=== PATIENT | male | born 1975 | race Caucasian/White ===

== ENCOUNTER 2023-07-09 07:48 | Outpatient (NON) | payer OTHER, SELFPAY | END 2023-07-09 07:49 | disposition home or self-care (01) | PROVIDERS: PCP Family Medicine; Visit Provider Internal Medicine Gastroenterology | DX: Z12.11 Encounter for screening for malignant neoplasm of colon (principal) | CPT/HCPCS: 88305 ==

== ENCOUNTER 2023-07-09 10:31 | Day surgery (SDC) | payer OTHER, SELFPAY ==
[2023-06-05 10:27] VITALS: BMI 23.0
[2023-06-10 11:50] VITALS: BMI 23.1
--- NOTE | 2023-07-09 07:50 | P.PNAN_ITS ---
Anes - Initial Pre Proc Eval Procedure: Operation Date: 07/09/23 13:00 Proposed Procedures p Screening Colonoscopy - Jose Miranda MD Date/Time: 07/09/23 07:50 Surgeon: Jose Miranda MD Pre Op Diagnosis: Screening Neoplasm of Colon Patient Data Age: 47 Gender: M Height: 1.8 m Weight: 75 kg Allergies Allergy/AdvReac Type Severity Reaction Status Date / Time No Known Allergies Allergy Unknown Verified 07/09/23 11:53 Home Medications Medication Instructions Recorded Confirmed Type No Home Medications 07/09/23 07/09/23 History Patient hx anesthesia problems: none Family hx anesthesia problems: none Results Review: All pre-operative results and documents have been reviewed as part of the pre- operative evaluation. [facility] Social History Social History (System 03/09/20 @ 10:45 by Jone Knott) Smoking status: Former smoker Alcohol intake: current Drinks per week: 6 Living arrangements: with family Spiritual care concerns: No Anes - Eval Final PreProcedure Day of Procedure 07/09/23 07:50 Patient weight: normal Heart: regular rate and rhythm Lungs: clear to auscultation and normal air movement Airway: Mallampati scale class II Neurological: alert and oriented Last oral intake: >/= 8 hours ASA classification: II Emergent: no Anesthetic plan: proceed Anesthesia type and monitoring: general GIVS and standard monitoring Results Review: All pre-operative results and documents have been reviewed as part of the pre- operative evaluation. Informed Consent: The patient's anesthetic plan and its attendant risks and benefits were discussed with the patient/family/POA. Questions were solicited and answers provided to the satisfaction of the patient/family/POA.
[2023-07-09 11:54] VITALS: BP 115/90; PULSE 103; RESP 18; TEMP 36.9; O2SAT 100
--- NOTE | 2023-07-09 12:02 | PM.HPGS ---
History of Present Illness History of Present Illness Consent: Risks, benefits, and alternatives have been discussed and questions answered. Patient agrees to proceed with procedure. Chief complaint: Screening Neoplasm of Colon Narrative: Sanjiv Cuba is a 47 year old male presents for screening colonoscopy. Patient's current weight is are normal. Patient had no bleeding. Family history is noncontributory. Review of Systems Review of Systems: All systems reviewed & are unremarkable except as noted in HPI and below PMFSH Social History Social History (System 03/09/20 @ 10:45 by Jone Knott) Smoking status: Former smoker Alcohol intake: current Drinks per week: 6 Living arrangements: with family Spiritual care concerns: No Meds Home Medications and Allergies Home Medications Medication Instructions Recorded Confirmed Type No Home Medications 07/09/23 07/09/23 History Allergies Allergy/AdvReac Type Severity Reaction Status Date / Time No Known Allergies Allergy Unknown Verified 07/09/23 11:53 Vital Signs Vital Signs - 24 hr 07/09/23 11:54 Temperature 98.4 F Pulse Rate 103 H Respiratory Rate 18 Blood Pressure 115/90 Pulse Oximetry 100 Oxygen Delivery Room Air Exam Narrative: Physical exam reveals patient to be alert. Signs stable. HEENT exam is unremarkable. Patient is anicteric. Lungs are clear to auscultation and to percussion is without murmur or extra sounds. Abdomen bowel sounds are present soft nontender with no organomegaly. Digital external rectal exam normal. Assessment and Plan Assessment and plan (1) Encounter for screening colonoscopy: Code(s): Z12.11 - Encounter for screening for malignant neoplasm of colon Status: Acute Assessment and Plan: Presents for screening colonoscopy. He appears to be at average risk for colon polyps.
[2023-07-09] MEDS: LACTATED RINGERS 1,000 ML 150 ML IV CONT (12:12)
[2023-07-09 14:14] VITALS: BP 133/103; PULSE 88; RESP 14; O2SAT 99
--- NOTE | 2023-07-09 14:19 | WPDANESPN ---
Anes - Prog Note Post-Op Date/Time: 07/09/23 14:19 Cardiovascular status: normal Respiratory status: normal Airway patency: baseline Mental status: baseline Post-Op hydration status: normal Vital Signs: Last Vital Signs Temp 36.9 C 07/09/23 11:54 Pulse 103 H 07/09/23 11:54 Resp 18 07/09/23 11:54 BP 115/90 07/09/23 11:54 Pulse Ox 100 07/09/23 11:54 O2 Del Method Room Air 07/09/23 11:54 Pain Score (VAS): 0 I/O: Intake & Output 07/08/23 07/09/23 07/09/23 23:59 07:59 15:59 Intake Total 400 Balance 400 Post-procedural complaints: none Patient Feedback: Patient satisfied with anesthetic care. Other Findings: Patient vital signs back to baseline. Patient denies nausea and vomiting. Patient's pain under control. Patient OK for discharge.
[2023-07-09 14:24] VITALS: BP 132/96; PULSE 75; RESP 14; O2SAT 100
[2023-07-09 14:34] VITALS: BP 123/99; PULSE 72; RESP 14; O2SAT 100
== END 2023-07-09 14:43 | disposition home or self-care (01) ==
PROVIDERS: PCP Family Medicine; Visit Provider Internal Medicine Gastroenterology
PROC: 0DJD8ZZ Inspection of Lower Intestinal Tract, Via Natural or Artificial Opening Endoscopic (ICD-10-PCS; CPT 45378; principal; 2023-07-09 13:00)
DX: Z12.11 Encounter for screening for malignant neoplasm of colon (principal); D12.5 Benign neoplasm of sigmoid colon; K64.8 Other hemorrhoids
CPT/HCPCS: 45385

== ENCOUNTER 2024-01-21 18:53 | Emergency (ER) | payer OTHER, SELFPAY ==
--- NOTE | ~2024-01-21 | US_ITS ---
EXAM: ABDOMEN ULTRASOUND HISTORY: pain, N/V; Guzman positive COMPARISON: None FINDINGS: LIVER: The liver is unremarkable in echogenicity and size measuring 16 cm in longitudinal dimension. The main portal vein is patent demonstrating hepatopedal flow GALLBLADDER: No stones are identified within the gallbladder, which is hydropic measuring 9.5 cm in l ength. A single subcentimeter avascular polyp is identified along the caudal-most margin of the gallbladder No gallbladder wall thickening or pericholecystic fluid. BILE DUCTS: Common bile duct measures 3mm. PANCREAS: Limited evaluation of the pancreas secondary to overlying bowel gas IMPRESSION: Hydropic gallbladder with a subcentimeter avascular polyp Reviewed, dictated and finalized at location A. ET MEASURER
--- NOTE | ~2024-01-21 | CT_ITS ---
CLINICAL INDICATION: Right flank pain COMPARISON: 07/08/2015. TECHNIQUE: Multiple contiguous axial images of the abdomen and pelvis were performed following the ad ministration of with 100 mL Omnipaque-350 intravenous contrast The dose-length product (DLP) was 278.44 mGy-cm. Automated exposure control and iterative reconstruction technique were employed. FINDINGS/OBSERVATIONS: Visualized lower thorax: The bilateral lung bases are clear. The heart is of normal size, without pericardial effusion. Small hiatal hernia is present. Liver: Liver enhances homogeneously, and is not enlarged measuring 16 cm in longitudinal dimension Gallbladder and biliary system: The gallbladder is distended, and otherwise unremarkable. Measurement on ultrasound is more accurate than multi slice CT. Pancreas: The pancreas enhances homogeneously without ductal dilatation. Spleen: The spleen enhances homogeneously and is not enlarged measuring 10 cm in longitudinal dimension. Kidneys: Right sided hydroureteronephrosis extending to the proximal right ureter where a 4 mm stone is identi fied. This likely is the source of patient's right-sided flank pain Adrenal glands: Unremarkable. Gastrointestinal tract: Colonic diverticulosis without surrounding inflammatory change. Fecal stasis within the rectum. Appendix: The appendix is of normal caliber (axial series, images 130-137) Vasculature: Unremarkable. No aneurysmal dilatation or significant stenosis. Lymph nodes: No pathologically enlarged or morphologically suspicious lymph nodes within the retroperitoneum or at the root of the mesentery. Pelvic structures: The bladder is distended, and otherwise unremarkable. The prostate gland is not enlarged. Body wall and musculoskeletal: No significant degenerative disease within the lower thoracic or lumbosacral spine. IMPRESSION: Right-sided hydroureteronephrosis secondary to a 4 mm stone in the proximal third of the right ureter . Reviewed, dictated and finalized at location A. CHIEF MARKETING OFFICER IMPRESSION: Right-sided hydroureteronephrosis secondary to a 4 mm stone in the proximal thi rd of the right ureter.
--- NOTE | 2024-01-21 19:11 | ED.ABDPAIN ---
HPI - Abdominal Pain General Chief Complaint: Abdominal Pain Stated Complaint: RIGHT FLANK PAIN Time Seen by Provider: 01/21/24 18:59 Source: patient and family Mode of arrival: ambulatory Limitations: no limitations History of Present Illness HPI narrative: Patient presents with right upper quadrant/right lateral abdominal/flank pain. No palliating or provoking factors. He describes it as sharp and stabbing, 9/10 in severity and that it comes in waves intermittently but frequently. He denies any fevers or chills. He denies any hematuria, urgency, frequency or dysuria. No penile discharge. He states this has never happened before. No prior abdominal surgeries or GI issues. Does not regularly follow with a mechanical integrity engineer although had a screening colonoscopy in the past year. No history of urinary tract infection or stone. His last bowel movement was this morning he denies any diarrhea, constipation, bloody stool. He has been nauseated and vomiting Friday and , approximately 5 or 6 episodes of nonbloody emesis this evening. His last oral intake was lunch he denies having an appetite. 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 HEAD: Normocephalic, atraumatic. EYES: Non injected, non icteric ENT: Nares clear, no rhinorrhea or epistaxis. NECK: Supple. CHEST: Speaking in full sentences. No respiratory distress. HEART: Regular rate and rhythm. ABDOMEN: Soft, nondistended. Mild tenderness to palpation in the right upper quadrant. Guzman sign positive. /BACK: No CVA tenderness bilaterally. EXTREMITIES: Normal range of motion. No lower extremity edema. SKIN: Warm, dry, no rash. NEURO: No focal deficits. Alert and oriented x3. PSYCH: Normal mood and affect. Course Vital Signs Vital signs: Vital Signs Pulse Rate 70 01/21/24 19:15 Respiratory Rate 11 L 01/21/24 19:15 Blood Pressure 134/91 H 01/21/24 19:15 Pulse Oximetry 99 01/21/24 19:15 Oxygen Delivery Room Air 01/21/24 19:15 Temperature 98.0 F 01/21/24 20:58 Pulse Rate 63 01/21/24 20:58 Respiratory Rate 15 01/21/24 20:58 Blood Pressure 137/88 01/21/24 20:58 Pulse Oximetry 97 01/21/24 20:58 Oxygen Delivery Room Air 01/21/24 19:15 MDM - Abdominal Pain MDM Narrative Medical decision making narrative: Patient presents with right upper quadrant/flank/right lateral abdominal pain associated with nausea and vomiting. In the emergency department he is afebrile with vital signs notable for very mild bradypnea as well as a slightly elevated diastolic blood pressure, both normalized upon repeat assessment. Patient does have evidence of gallbladder hydrops on right upper quadrant ultrasound. However, he also has findings of a ureteral stone in the proximal 3rd on the right. He is reassessed at approximately 9:10pm and states his pain is still present although greatly improved. His nausea has completely resolved. We discussed that although it is initially difficult to tell which process is the cause, in the absence of a leukocytosis or liver function test abnormalities and being non-toxic appearing and feeling better after 1 dose of analgesic and antiemetic; in addition to his description of pain coming in waves, is reasonable to treat for a kidney stone and have him follow-up in the outpatient setting for general surgery consultation for the other rather than presuming the gallbladder hydrops is the cause and the kidney stone is the incidental findings. Patient and his verifies understanding and are in agreement. He is obviously given very strict emergency department return precautions. He is reassessed after receiving Toradol and tamsulosin he states his pain is gone. Stable for discharge. Differential Diagnosis Differential diagnosis: Likely abdominal pain, calculus of kidney, constipation, pancreatitis and other (biliary etiology) Lab Data Attestation: I reviewed the patient's lab results. Lab results narrative: Hematuria 01/21/24 19:50 01/21/24 19:50 Labs: Lab Results 01/21/24 01/21/24 Range/Units 19:50 20:35 WBC 8.8 (4.5-10.0) K/mm3 RBC 4.77 (4.6-6.20) M/mm3 Hgb 14.1 (14.0-18.0) g/dL Hct 41.4 L (42.0-52.0) % MCV 86.8 (80-100) fl MCH 29.6 (26-34) pg MCHC 34.1 (32-36) g/dl RDW 12.0 (11.5-14.5) % Plt Count 240 (150-375) k/mm3 MPV 10.4 (7.4-10.4) fl Immature Gran % (Auto) 0.3 (0-0.5) % Neut % (Auto) 78.0 H (45.5-73.1) % Lymph % (Auto) 12.8 L (18.3-44.2) % [place] % (Auto) 7.3 (2.6-8.5) % Eos % (Auto) 1.1 (0-4.4) % Baso % (Auto) 0.5 (0.2-1.2) % Lymph # (Auto) 1.12 (0.9-3.2) K/mm3 [place] # (Auto) 0.6 (0.1-0.6) K/mm3 Eos # (Auto) 0.1 (0-0.3) K/mm3 Baso # (Auto) 0.0 (0.0-0.1) K/mm3 Abs Immat Gran (auto) 0.03 (0.00-0.031) K/mm3 Absolute Neuts (auto) 6.8 H (1.3-6.7) K/mm3 Absolute Nucleated RBC 0.000 (0.0-0.012) K/mm3 Nucleated RBC % 0.0 (0.0-0.2) % Sodium 138 (137-145) mmol/L Potassium 3.6 (3.4-5.0) mmol/L Chloride 102 (98-107) mmol/L Carbon Dioxide 26 (22-30) mmol/L Anion Gap 10 (4-12) mmol/L BUN 16 (9-20) mg/dL Creatinine 1.10 (0.7-1.3) mg/dL Estim Creat Clear Calc 75 ml/min Estimated GFR > 60 (59 - ) Glucose 99 (65-110) mg/dL Calcium 9.7 (8.4-10.2) mg/dL Total Bilirubin 0.5 (0.2-1.3) mg/dL AST 46 (17-59) U/L ALT 32 (6-50) U/L Alkaline Phosphatase 59 (38-126) U/L Total Protein 7.0 (6.3-8.2) g/dL Albumin 4.6 (3.5-5.1) g/dL Lipase 109 (23-300) U/L Urine Color Yellow (Yellow) Urine Appearance Clear (Clear) Urine pH 5.5 (5.0-9.0) Ur Specific [place] 1.027 (1.001-1.035) Urine Protein Trace (Negative) mg/dL Urine Glucose (UA) Negative (Negative) mg/dL Urine Ketones Trace H (Negative) mg/dL Ur Blood (Man) 3+ H (Negative) Urine Nitrate Negative (Negative) Urine Bilirubin Negative (Negative) Urine Urobilinogen 0.2 (<2.0) mg/dL Leukocyte Esterase Rfl Negative (Negative) NANCY/UL Urine RBC 21-50 H (0-2) /hpf Urine WBC 0-5 (0-3) /hpf Ur Squamous Epith Cells None seen (Few) /hpf Urine Bacteria None seen /hpf Urine Casts 0-2 Influenza A (RT-PCR) Negative (Negative) Influenza B (RT-PCR) Negative (Negative) SARS-CoV-2 RNA (RT-PCR) Negative (Negative) Imaging Data Radiologist's impression: ITS Impressions Abdomen Ultrasound 01/21/24 20:34 IMPRESSION: Hydropic gallbladder with a subcentimeter avascular polyp Abdomen/Pelvis CT 01/21/24 20:52 IMPRESSION: Right-sided hydroureteronephrosis secondary to a 4 mm stone in the proximal third of the right ureter. Impressions Abdomen Ultrasound 01/21/24 20:34 IMPRESSION: Hydropic gallbladder with a subcentimeter avascular polyp Abdomen/Pelvis CT 01/21/24 20:52 IMPRESSION: Right-sided hydroureteronephrosis secondary to a 4 mm stone in the proximal third of the right ureter. Discharge Plan Discharge Clinical Impression: Right ureteral stone, Gallbladder hydrops, Hydroureteronephrosis, Hematuria, microscopic Patient Disposition: Home, Self-Care Condition: Stable Instructions: Antibiotic Form, Hematuria (ED), How to Strain Your Urine (ED), Hydronephrosis (ED), Ureteral Stones (ED) Additional Instructions: As we discussed, you have evidence of a kidney stone in your ureter which is likely the culprit of your acute pain. Treat with the combination of medications prescribed for the reasons we discussed (pain control, nausea/vomiting, and expulsion therapy). Strain your urine and if you collect a stone, you can take it and follow up with urology if you would like (referral contact information listed below). Can not exclude that the finding of gallbladder hydrops is contributing/exacerbating/the cause of your pain, though for now will presume the kidney stone is the primary issue. You can follow up in the outpatient setting with general surgery (listed below) if you would like to follow up on this or if you have issues in the future. Do not hesitate to return to the ED immediately if you have pain not responding to the pain medication (use ibuprofen/NSAIDs first line but can supplement with acetaminophen/Tylenol maximum 4000mg/day), intractable nausea or vomiting, fever greater than 100.4? F, or new or worsening symptoms. Prescriptions: New ibuprofen 600 mg tablet 600 mg PO TID PRN (Reason: pain) Qty: 30 0RF ondansetron 4 mg tablet,disintegrating 4 mg PO Q8H PRN (Reason: nausea and vomiting) Qty: 10 0RF tamsulosin 0.4 mg capsule 0.4 mg PO DAILY Qty: 12 0RF acetaminophen 500 mg capsule 1,000 mg PO Q6H PRN (Reason: pain) Qty: 30 0RF Follow-up/Referrals: Roberth Kc MD [Primary Care Provider] - Ari Azar MD [Physician] - (urology) Nikos Martinez MD [Physician] - (general surgery) Stand Alone Forms: Work/School Release IP Time of Disposition: 21:28
[2024-01-21 19:15] VITALS: BP 134/91; PULSE 70; RESP 11; O2SAT 99
[2024-01-21 19:57] LABS: Basophils Percent Auto 0.5 % (0.2-1.2); Eosinophils Absolute Auto 0.1 K/mm3 (0-0.3); Eosinophils Percent Auto 1.1 % (0-4.4); Hematocrit 41.4 % (42.0-52.0); Hemoglobin 14.1 g/dL (14.0-18.0); Immature Granulocyte Absolute 0.03 K/mm3 (0.00-0.031); Immature Granulocyte Percent A 0.3 % (0-0.5); Lymphocytes Absolute Auto 1.12 K/mm3 (0.9-3.2); Lymphocytes Percent Auto 12.8 % (18.3-44.2); Mean Corpuscular HGB Conc 34.1 g/dl (32-36); Mean Corpuscular Hemoglobin 29.6 pg (26-34); Mean Corpuscular Volume 86.8 fl (80-100); Mean Platelet Volume 10.4 fl (7.4-10.4); Monocytes Absolute Auto 0.6 K/mm3 (0.1-0.6); Monocytes Percent Auto 7.3 % (2.6-8.5); Neutrophils Absolute Auto 6.8 K/mm3 (1.3-6.7); Platelet Count Result 240 k/mm3 (150-375); Red Blood Count 4.77 M/mm3 (4.6-6.20); White Blood Count 8.8 K/mm3 (4.5-10.0)
[2024-01-21] MEDS: ONDANSETRON INJ 4 MG/2 ML VIAL IV PUSH (20:00)
[2024-01-21] MEDS: MORPHINE SULFATE (*CRX) 4 MG/ML INJ IV PUSH (20:00)
[2024-01-21 20:02] VITALS: BP 127/96; PULSE 71; RESP 12; O2SAT 96
[2024-01-21 20:10] LABS: Alanine Aminotransferase 32 U/L (6-50); Albumin Level 4.6 g/dL (3.5-5.1); Alkaline Phosphatase 59 U/L (38-126); Anion Gap 10 mmol/L (4-12); Aspartate Amino Transferase 46 U/L (17-59); Bilirubin,Total 0.5 mg/dL (0.2-1.3); Blood Urea Nitrogen 16 mg/dL (9-20); Calcium 9.7 mg/dL (8.4-10.2); Carbon Dioxide 26 mmol/L (22-30); Chloride 102 mmol/L (98-107); Estimated CRCL calculation 75 ml/min; Estimated Glomerular Filt Rate > 60; Glucose 99 mg/dL (65-110); Lipase 109 U/L (23-300); Potassium 3.6 mmol/L (3.4-5.0); Sodium 138 mmol/L (137-145)
[2024-01-21 20:36] LABS: Influenza A QL RT-PCR Negative (Negative); Influenza B QL RT-PCR Negative (Negative); SARS-CoV-2 RNA PCR Negative (Negative)
[2024-01-21 20:41] VITALS: BP 148/94; PULSE 74; RESP 17; TEMP 36.8; O2SAT 97
[2024-01-21 20:52] LABS: Add Urine Microscopic? YES; Appearance Urine Clear (Clear); Bacteria Urine None Seen /hpf; Bilirubin Urine Negative (Negative); Blood Urine 3+ (Negative); Color Urine Yellow (Yellow); Glucose Urine UA Negative (Negative); Ketones Urine Trace mg/dL (Negative); Leukocyte Esterase Ur Negative LEU/UL (Negative); Nitrate Urine Negative (Negative); Non Pathogenic Casts 0-2; Protein Urine Trace mg/dL (Negative); RBC Urine 21-50 /hpf (0-2); Specific Grav Ur 1.027 (1.001-1.035); Squamous Epithelial Cell Urine None Seen /hpf (Few); Urobilinogen Urine 0.2 mg/dL (<2.0); WBC Urine 0-5 /hpf (0-3); pH Urine 5.5 (5.0-9.0)
[2024-01-21 20:58] VITALS: BP 137/88; PULSE 63; RESP 15; TEMP 36.7; O2SAT 97
[2024-01-21] MEDS: KETOROLAC 15 MG/ML VIAL (*BKC) IV PUSH (21:20)
[2024-01-21] MEDS: TAMSULOSIN HCL 0.4 MG CAPSULE PO (21:20)
[2024-01-21 22:14] VITALS: TEMP 36.9
== END 2024-01-21 22:18 | disposition home or self-care (01) ==
PROVIDERS: Emergency Provider Student in an Organized Health Care Education/Training Program; PCP Family Medicine
DX: N13.2 Hydronephrosis with renal and ureteral calculous obstruction (principal); K82.1 Hydrops of gallbladder; R31.29 Other microscopic hematuria; Z20.822 Contact with and (suspected) exposure to COVID-19; Z87.891 Personal history of nicotine dependence
CPT/HCPCS: 36415; 74177; 76705; 80053; 81001; 83690; 85025; 87636; 96374; 96375; 99284; A9270; J1885; J2270; J2405; Q9967

== ENCOUNTER 2024-02-19 08:51 | Emergency (ER) | payer OTHER, SELFPAY ==
--- NOTE | ~2024-02-19 | XR_ITS ---
XR abdomen/kub 1V 02/19/2024 11:21 INDICATION: Right renal stone TECHNIQUE: KUB COMPARISON: None FINDINGS: Bowel gas pattern is normal. There is calcification overlying the right kidney, consistent with renal stone. No definite stones are identified in the expected course of the ureters. There is n o evidence of free air, mass, organomegaly, ascites or obstruction. The bones appear intact. IMPRESSION: 1: Right nephrolithiasis. Reviewed, dictated and finalized at location B. CTOR OF BUSINESS OPERATIONS IMPRESSION: 1: Right nephrolithiasis.
--- NOTE | ~2024-02-19 | CT_ITS ---
EXAMINATION: CT abdomen pelvis wo con DATE: 02/19/2024 10:06 INDICATION: Right flank pain. Right lower quadrant abdominal pain. TECHNIQUE: Computed tomography (CT) of the abdomen and pelvis was performed without intravenous contr ast. Automated exposure control and iterative reconstruction technique were employed. The dose-length product was 265.75 mGy-cm. COMPARISON: CT abdomen and pelvis 01/21/2024 FINDINGS: The visualized portions of the lung bases are clear without pneumonia or pleural effusion. The heart size is normal. No pericardial effusion. There is a small sliding hiatal hernia. The liver, gallbladder, spleen, pancreas, and adrenal glands are normal. There are three stones in right kidney measuring up to 4 mm. There is a 2 mm stone in left kidney. There is a 4.5 cm cyst in right kidney. There is mild right hydronephrosis and proximal hydroureter. There is a 4 mm stone in proximal right ureter. The prostate is mildly enlarged. There is diverticulosis of the colon without evidence of div erticulitis. There are no dilated loops of bowel. The appendix is normal. There are no pathologically enlarged lymph nodes. There is no free intraperitoneal fluid. There is mild thoracic and lumbar spon dylosis. IMPRESSION: 1. 4 mm stone in proximal right ureter with mild right hydronephrosis and proximal hydroureter. 2. Bilateral nonobstructing kidney stones. Reviewed, dictated and finalized at location A. FARM BARN TECHNICIAN IMPRESSION: 1. 4 mm stone in proximal right ureter with mild right hydronephrosis and proxi mal hydroureter. 2. Bilateral nonobstructing kidney stones.
[2024-02-19 08:56] VITALS: BP 153/103; PULSE 59; RESP 16; TEMP 36.7; O2SAT 100
--- NOTE | 2024-02-19 09:46 | ED.ABDPAIN ---
HPI - Abdominal Pain General Chief Complaint: Abdominal Pain Stated Complaint: right flank pain Time Seen by Provider: 02/19/24 09:00 Source: patient Mode of arrival: ambulatory Limitations: no limitations History of Present Illness HPI narrative: Patient is a 48 y/o male who presents to the ED with c/o R flank/abd pain. patient reports he developed pain throughout his right lower abdomen, radiating around to his right mid back this morning. Was seen in the ER here around 1 month ago diagnosed with kidney stones. States pain feels similar. Tried taking Tylenol this morning, but has had vomiting and does not think she kept this down. Still feeling nauseous currently. Denies dysuria, hematuria, but does feel he is not able to empty his bladder fully. Denies fevers. Related Data Allergies Allergy/AdvReac Type Severity Reaction Status Date / Time No Known Allergies Allergy Unknown Verified 02/19/24 09:00 Review of Systems Review of Systems: All systems reviewed & are unremarkable except as noted in HPI. 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 HEAD: Normocephalic, atraumatic. RESPIRATORY: Airway patent, respirations nonlabored. Clear to auscultation bilaterally, no rales, rhonchi, wheezing. CARDIOVASCULAR: Regular rate and rhythm without murmurs, rubs, or gallops. ABDOMINAL: Soft, tenderness palpation in the right lower/ lateral abdomen, right flank region. Nondistended. Normoactive BS. MUSCULOSKELETAL: Moves all extremities. No gross deformities. SKIN: Warm, dry, normal color. NEURO: A&O X3. Speech clear. PSYCHIATRIC: Appropriate mood and affect. Normal interaction. Course Vital Signs Vital signs: Vital Signs Temperature 98.0 F 02/19/24 08:56 Pulse Rate 59 L 02/19/24 08:56 Respiratory Rate 16 02/19/24 08:56 Blood Pressure 153/103 H 02/19/24 08:56 Pulse Oximetry 100 02/19/24 08:56 Oxygen Delivery Room Air 02/19/24 08:56 Temperature 98.0 F 02/19/24 08:56 Pulse Rate 89 02/19/24 11:30 Respiratory Rate 18 02/19/24 11:30 Blood Pressure 138/91 H 02/19/24 11:30 Pulse Oximetry 100 02/19/24 11:30 Oxygen Delivery Room Air 02/19/24 08:56 MDM - Abdominal Pain MDM Narrative Medical decision making narrative: Patient presented to ED with right lower abdominal, right flank pain that began this morning. History of kidney stones of felt similar. Vital signs are stable upon arrival. Patient is afebrile. Laboratory studies Are unremarkable. No leukocytosis or anemia. Stable kidney function. Stable electrolytes. Urine with 1+ ketones, evidence of blood, no signs of infection. CT scan of abdomen/ pelvis obtained: IMPRESSION: 1. 4 mm stone in proximal right ureter with mild right hydronephrosis and proximal hydroureter. 2. Bilateral nonobstructing kidney stones. Consistent with clinical picture presenting symptoms. KUB was obtained and visualized stone. Patient given pain, nausea medicine, Flomax, fluids in the ED. He is feeling better on re-evaluation. Feels pain is much more manageable at this time. Discussed discharge home versus admission for further pain control. Utilize shared decision-making with patient. He would prefer to go home. He feels comfortable doing so. Recommended that he follow-up with urology as an outpatient. Will discharge with pain and nausea medicine, Flomax. Discussed strict return precautions. D/C in stable condition. Medical Records Attestation: I reviewed the patient's medical records. Lab Data Attestation: I reviewed the patient's lab results. 02/19/24 09:58 02/19/24 09:58 Labs: Lab Results 02/19/24 02/19/24 Range/Units 09:58 11:28 WBC 9.8 (4.5-10.0) K/mm3 RBC 4.98 (4.6-6.20) M/mm3 Hgb 14.9 (14.0-18.0) g/dL Hct 43.6 (42.0-52.0) % MCV 87.6 (80-100) fl MCH 29.9 (26-34) pg MCHC 34.2 (32-36) g/dl RDW 11.9 (11.5-14.5) % Plt Count 249 (150-375) k/mm3 MPV 10.6 H (7.4-10.4) fl Immature Gran % (Auto) 0.2 (0-0.5) % Neut % (Auto) 88.0 H (45.5-73.1) % Lymph % (Auto) 6.6 L (18.3-44.2) % [place] % (Auto) 4.8 (2.6-8.5) % Eos % (Auto) 0.2 (0-4.4) % Baso % (Auto) 0.2 (0.2-1.2) % Lymph # (Auto) 0.65 L (0.9-3.2) K/mm3 [place] # (Auto) 0.5 (0.1-0.6) K/mm3 Eos # (Auto) 0.0 (0-0.3) K/mm3 Baso # (Auto) 0.0 (0.0-0.1) K/mm3 Abs Immat Gran (auto) 0.02 (0.00-0.031) K/mm3 Absolute Neuts (auto) 8.6 H (1.3-6.7) K/mm3 Absolute Nucleated RBC 0.000 (0.0-0.012) K/mm3 Nucleated RBC % 0.0 (0.0-0.2) % Sodium 138 (137-145) mmol/L Potassium 3.9 (3.4-5.0) mmol/L Chloride 103 (98-107) mmol/L Carbon Dioxide 28 (22-30) mmol/L Anion Gap 7 (4-12) mmol/L BUN 20 (9-20) mg/dL Creatinine 1.20 (0.7-1.3) mg/dL Estim Creat Clear Calc Not Reportable Estimated GFR > 60 (59 - ) Glucose 130 H (65-110) mg/dL Calcium 9.4 (8.4-10.2) mg/dL Total Bilirubin 0.6 (0.2-1.3) mg/dL AST 28 (17-59) U/L ALT 23 (6-50) U/L Alkaline Phosphatase 57 (38-126) U/L Total Protein 8.0 (6.3-8.2) g/dL Albumin 4.9 (3.5-5.1) g/dL Lipase 98 (23-300) U/L Urine Color Yellow (Yellow) Urine Appearance Cloudy H (Clear) Urine pH 5.5 (5.0-9.0) Ur Specific [place] 1.026 (1.001-1.035) Urine Protein 2+ H (Negative) mg/dL Urine Glucose (UA) Negative (Negative) mg/dL Urine Ketones 1+ H (Negative) mg/dL Ur Blood (Man) 3+ H (Negative) Urine Nitrate Negative (Negative) Urine Bilirubin Negative (Negative) Urine Urobilinogen 1.0 (<2.0) mg/dL Leukocyte Esterase Rfl Trace H (Negative) NANCY/UL Urine RBC 51-100 H (0-2) /hpf Urine WBC 0-5 (0-3) /hpf Ur Squamous Epith Cells None seen (Few) /hpf Urine Bacteria None seen /hpf Urine Casts 3-5 Imaging Data Attestation: I personally reviewed and interpreted this imaging study as follows: Radiologist's impression: ITS Impressions Abdomen/Pelvis CT 02/19/24 10:12 IMPRESSION: 1. 4 mm stone in proximal right ureter with mild right hydronephrosis and proximal hydroureter. 2. Bilateral nonobstructing kidney stones. Abdomen X-Ray 02/19/24 11:22 IMPRESSION: 1: Right nephrolithiasis. Discharge Plan Discharge Clinical Impression: Calculus of proximal right ureter, Bilateral renal stones Hydronephrosis Qualifiers: Hydronephrosis type: unspecified Qualified Code(s): N13.30 - Unspecified hydronephrosis Patient Disposition: Home, Self-Care Condition: Stable Instructions: Antibiotic Form, Kidney Stones (ED), Renal Colic (ED), How to Strain Your Urine (ED) Additional Instructions: Take Flomax daily as prescribed. Continue Tylenol as needed for pain. Oxycodone as needed for more severe pain. Zofran for nausea. Stay well hydrated. Strain urine to collect stone. Follow up with Urology for further evaluation. Call office to make appointment. Return to the ED if you experience worsening or severe pain, unable to keep down food/drink, fevers, uncontrollable nausea/vomiting, unable to urinate, or any other symptoms of concern. Prescriptions: New ondansetron 4 mg tablet,disintegrating 4 mg PO Q8H PRN (Reason: nausea and vomiting) Qty: 15 0RF oxycodone 5 mg tablet 5 mg PO Q6H PRN (Reason: pain) Qty: 20 0RF tamsulosin [Flomax] 0.4 mg capsule 0.4 mg PO DAILY Qty: 7 0RF No Action ibuprofen 600 mg tablet 600 mg PO TID PRN (Reason: pain) Qty: 30 0RF ondansetron 4 mg tablet,disintegrating 4 mg PO Q8H PRN (Reason: nausea and vomiting) Qty: 10 0RF tamsulosin 0.4 mg capsule 0.4 mg PO DAILY Qty: 12 0RF acetaminophen 500 mg capsule 1,000 mg PO Q6H PRN (Reason: pain) Qty: 30 0RF Follow-up/Referrals: Roberth Kc MD [Primary Care Provider] - Ari Azar MD [Physician] - (UROLOGY) Time of Disposition: 12:08
[2024-02-19] MEDS: SODIUM CHLORIDE 0.9% IV 1,000 ML 999 ML IV CONT (09:53)
[2024-02-19] MEDS: ONDANSETRON INJ 4 MG/2 ML VIAL IV PUSH ×2 (09:54→10:23)
[2024-02-19] MEDS: MORPHINE SULFATE (*CRX) 4 MG/ML INJ IV PUSH (09:55)
[2024-02-19 09:57] VITALS: BP 141/100; PULSE 64; RESP 17; O2SAT 100
[2024-02-19 10:05] LABS: Basophils Percent Auto 0.2 % (0.2-1.2); Eosinophils Percent Auto 0.2 % (0-4.4); Hematocrit 43.6 % (42.0-52.0); Hemoglobin 14.9 g/dL (14.0-18.0); Immature Granulocyte Absolute 0.02 K/mm3 (0.00-0.031); Immature Granulocyte Percent A 0.2 % (0-0.5); Lymphocytes Absolute Auto 0.65 K/mm3 (0.9-3.2); Lymphocytes Percent Auto 6.6 % (18.3-44.2); Mean Corpuscular HGB Conc 34.2 g/dl (32-36); Mean Corpuscular Hemoglobin 29.9 pg (26-34); Mean Corpuscular Volume 87.6 fl (80-100); Mean Platelet Volume 10.6 fl (7.4-10.4); Monocytes Absolute Auto 0.5 K/mm3 (0.1-0.6); Monocytes Percent Auto 4.8 % (2.6-8.5); Neutrophils Absolute Auto 8.6 K/mm3 (1.3-6.7); Platelet Count Result 249 k/mm3 (150-375); Red Blood Count 4.98 M/mm3 (4.6-6.20); Red Cell Distribution Width 11.9 % (11.5-14.5); White Blood Count 9.8 K/mm3 (4.5-10.0)
[2024-02-19 10:17] LABS: Alanine Aminotransferase 23 U/L (6-50); Albumin Level 4.9 g/dL (3.5-5.1); Alkaline Phosphatase 57 U/L (38-126); Anion Gap 7 mmol/L (4-12); Aspartate Amino Transferase 28 U/L (17-59); Bilirubin,Total 0.6 mg/dL (0.2-1.3); Blood Urea Nitrogen 20 mg/dL (9-20); Calcium 9.4 mg/dL (8.4-10.2); Carbon Dioxide 28 mmol/L (22-30); Chloride 103 mmol/L (98-107); Estimated Glomerular Filt Rate > 60; Glucose 130 mg/dL (65-110); Lipase 98 U/L (23-300); Potassium 3.9 mmol/L (3.4-5.0); Sodium 138 mmol/L (137-145)
[2024-02-19] MEDS: TAMSULOSIN HCL 0.4 MG CAPSULE PO (11:29)
[2024-02-19 11:30] VITALS: BP 138/91; PULSE 89; RESP 18; O2SAT 100
[2024-02-19] MEDS: HYDROmorphone HCL INJ (*CRX) 1 MG/ML SYR 0.5 MG IV PUSH (11:30)
[2024-02-19 11:50] LABS: Add Urine Microscopic? YES; Appearance Urine Cloudy (Clear); Bacteria Urine None Seen /hpf; Bilirubin Urine Negative (Negative); Blood Urine 3+ (Negative); Color Urine Yellow (Yellow); Glucose Urine UA Negative (Negative); Ketones Urine 1+ mg/dL (Negative); Leukocyte Esterase Ur Trace LEU/UL (Negative); Nitrate Urine Negative (Negative); Protein Urine 2+ mg/dL (Negative); RBC Urine 51-100 /hpf (0-2); Specific Grav Ur 1.026 (1.001-1.035); Squamous Epithelial Cell Urine None Seen /hpf (Few); WBC Urine 0-5 /hpf (0-3); pH Urine 5.5 (5.0-9.0)
[2024-02-19 12:57] VITALS: BP 101/74; PULSE 67; RESP 15; O2SAT 100
== END 2024-02-19 13:02 | disposition home or self-care (01) ==
PROVIDERS: Emergency Provider Physician Assistant; PCP Family Medicine
DX: N13.2 Hydronephrosis with renal and ureteral calculous obstruction (principal); Z87.442 Personal history of urinary calculi; Z87.891 Personal history of nicotine dependence
CPT/HCPCS: 36415; 74018; 74176; 80053; 81001; 83690; 85025; 96361; 96374; 96375; 96376; 99284; A9270; J1171; J2270; J2405; J7030

== ENCOUNTER 2024-03-04 12:26 | Outpatient (CLI) | payer OTHER, SELFPAY ==
[2024-03-04 13:29] LABS: Partial Thromboplastin Time 24.8 Seconds (22.3-36.8); Prothrombin Time 13.5 Seconds (11.1-14.7)
== END 2024-03-04 12:27 | disposition home or self-care (01) ==
PROVIDERS: PCP Family Medicine; Visit Provider Urology
DX: Z01.812 Encounter for preprocedural laboratory examination (principal); N20.0 Calculus of kidney
CPT/HCPCS: 36415; 85610; 85730; 87086

== ENCOUNTER 2024-03-12 00:39 | Day surgery (SDC) | payer OTHER, SELFPAY ==
[2024-03-03 11:03] VITALS: BMI 22.3
--- NOTE | 2024-03-03 11:09 | PC.NURSE ---
Report to the Outpatient Waiting Room, entrance under the green pavilion located off [facility], at time _0930_ on date _[id number]_. Planned Procedure Time: _1130_.? Time changes happen often and if your time is changed the preop area will call you the afternoon before. - You and your visitor will be asked to self-screen and do not enter if you have any COVID symptoms. Please call surgeon if you need to reschedule. - A mask is optional within the hospital at this time. Patients may have clear liquids (water, carbonated beverages, clear teas, apple juice) until 3 hours prior to surgery with a maximum of 20 ounces. - No food from midnight until time of surgery and no smoking. This includes no chewing gum, candy or mints. Take only the following medications with a SIP of water on the morning of surgery: ____If needed may use Acetaminophen, Oxycodone and or Zofran DO NOT STOP ANY OF YOUR OTHER PRESCRIPTION MEDICATIONS PRIOR TO SURGERY EXCEPT THE FOLLOWING Medications to discontinue per physician ____Ibuprofen, check with Dr's office if ok to take or need to hold. Date to take last dose Please no make-up, nail armenian, hairspray, perfume, deodorant, or body powder the day of surgery.? No jewelry (including any body piercings) or valuables the day of surgery, leave them at home.? Please take a shower or bath the night before, or the morning of, surgery with an antibacterial soap.? Wear comfortable, loose fitting clothing.? - Jewelry must be removed prior to entering the operating room.? Rings and piercings that are not removed may be cut off. - The hospital will not accept responsibility for valuables.? - Please leave all valuables, including medications, at home the day of surgery. If you are going home after surgery, a licensed truck driver supervisor must drive you home.? - NO public transportation without another adult if you receive anesthesia. - We recommend that an adult stay with you for 24 hours following discharge. - We also recommend that you do not drive, make important decision, drink alcoholic beverages, or take any drugs that were not prescribed by your health care provider for at least 24 hours after your discharge time. Follow any additional instructions given to you from your surgeon. Telephone instructions given to __Ron__and asked if any additional questions and then verbalized understanding. Patient advised to call surgeon office or pre surgery nurse liaison [phone] if any additional questions.
[2024-03-12] VITALS (7 sets, daily range): BP systolic 119–134; BP diastolic 83–90; PULSE 60–90; RESP 15–16; TEMP 36.3–36.7; O2SAT 100; BMI 22.4
--- NOTE | ~2024-03-12 | XR_ITS ---
EXAMINATION: XR abdomen/kub 1V DATE: 03/12/2024 09:53 INDICATION: Right kidney stone. TECHNIQUE: A supine view of the abdomen on 2 radiographs was obtained. COMPARISON: CT abdomen and pelvis 02/19/2024 FINDINGS: There are no dilated loops of bowel. There is a small volume of stool in the colon. IMPRESSION: 1. No visible urolithiasis. Reviewed, dictated and finalized at location A. OID UI DEVELOPER IMPRESSION: 1. No visible urolithiasis.
--- NOTE | ~2024-03-12 | CT_ITS ---
EXAMINATION: CT abdomen pelvis wo con DATE: 03/12/2024 10:23 INDICATION: Right ureteral stone. TECHNIQUE: Computed tomography (CT) of the abdomen and pelvis was performed without intravenous contr ast. Automated exposure control and iterative reconstruction technique were employed. The dose-length product was 209.57 mGy-cm. COMPARISON: CT abdomen and pelvis 02/19/2024 FINDINGS: The visualized portions of the lung bases are clear without pneumonia or pleural effusion. The heart size is normal. No pericardial effusion. There is a small sliding hiatal hernia. The liver, gallbladder, pancreas, adrenal glands, and kidneys are normal. There is a 4.5 cm cyst in right kidne y. There is a 3 mm stone in right kidney. There is a 3 mm stone in proximal right ureter. There is a 2 mm stone in left kidney. The prostate is mildly enlarged. There are no dilated loops of bowel. The appendix is normal. There are no pathologically enlarged lymph nodes. There is no free intraperitonea l fluid. There is mild thoracic and lumbar spondylosis. IMPRESSION: 1. 3 mm stone in proximal right ureter. No hydronephrosis. 2. Bilateral nonobstructing kidney stones. Reviewed, dictated and finalized at location A. SPORTATION PLANNER
--- NOTE | 2024-03-12 06:23 | WPDHPUPDATE1 ---
History and Physical Update Update Date/Time: 03/12/24 06:23 History and Physical has been reviewed, including an updated exam of the patient. There are NO changes in the patient's condition. Risks, benefits, and alternatives have been discussed and questions answered. Patient agrees to proceed with procedure.
[2024-03-12] MEDS: LACTATED RINGERS 1,000 ML 30 ML IV CONT (10:40)
--- NOTE | 2024-03-12 11:02 | WPDANESEPPF ---
Anes - Initial Pre Proc Eval Procedure: Operation Date: 03/12/24 11:30 Proposed Procedures p Right Extracorporeal Shock Wave Lithotripsy - Ari Azar MD Date/Time: 03/12/24 11:02 Surgeon: Ari Azar MD Pre Op Diagnosis: right renal stones, urinalysis Patient Data Age: 48 Gender: M Height: 1.8 m Weight: 72.75 kg Last Vital Signs Temp 98.1 F 03/12/24 10:00 Pulse 74 03/12/24 10:00 Resp 16 03/12/24 10:00 BP 119/83 03/12/24 10:00 Pulse Ox 100 03/12/24 10:00 O2 Del Method Room Air 03/12/24 10:00 Allergies Allergy/AdvReac Type Severity Reaction Status Date / Time No Known Allergies Allergy Unknown Verified 03/12/24 10:06 Home Medications ?Medication ?Instructions ?Recorded ?Confirmed ?Type acetaminophen 500 mg capsule 1,000 mg (2 x 500 mg) PO Q6H PRN 01/21/24 03/03/24 Rx pain #30 caps ibuprofen 600 mg tablet 600 mg PO TID PRN pain #30 tabs 01/21/24 03/03/24 Rx ondansetron 4 mg disintegrating 4 mg PO Q8H PRN nausea and 01/21/24 03/03/24 Rx tablet vomiting #10 tabs tamsulosin 0.4 mg capsule 0.4 mg PO DAILY #12 caps 01/21/24 03/03/24 Rx oxycodone 5 mg tablet 5 mg PO Q6H PRN pain #20 tabs 02/19/24 03/03/24 Rx Patient hx anesthesia problems: none Family hx anesthesia problems: none Results Review: All pre-operative results and documents have been reviewed as part of the pre-operative evaluation. 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 Ex smoker, approx 10 years, quit 2013. Informed Consent: The patient's anesthetic plan and its attendant risks and benefits were discussed with the patient/family/POA. Questions were solicited and answers provided to the satisfaction of the patient/family/POA.
[2024-03-12] MEDS: ceFAZolin 2 GM/D5W 50 ML 2 GM/50 ML BAG IVPB (11:17)
--- NOTE | 2024-03-12 11:58 | W.PM.PROC2 ---
Procedure Note - Detailed Date of Procedure 03/12/24 Pre-op Diagnosis Right ureteral stone Post-op Diagnosis Same Procedure Performed Cystoscopy, right retrograde pyelography, right ESWL Surgeon Ari Azar MD Anesthesia General Description of Procedure Patient is brought to the operative suite was prepped and draped in routine sterile fashion while in a supine position the Lithotripter table. Initial fluoroscopy was unable to reliably identify his 4 mm right proximal ureteral stone which had been confirmed to be unchanged in position by CT scan the abdomen pelvis removed this morning. I therefore performed cystoscopy retrograde pyelography. He has no urethral stricture minimal prostatic hyperplasia. The bladder was endoscopically normal. Is single orthotopic ureteral orifice bilaterally. Placed a 0.035 in glidewire in could feel where the stone was obstructing. Placed a [place] angiographic catheter to that point. Retrograde pyelography confirmed a filling defect. At that site ripped proceeded with The patient was brought to the operative suite where he was placed in the supine position on the [place] lithotripsy table. The focal point of the lithotriptor was placed at a 8mm left lower calyceal renal calculus. A total of 2500 shocks were delivered at a power setting of 7. There appeared to be good fragmentation of the stone . The patient tolerated the procedure well and was taken to the recovery room in good condition. , delivering 3000 shocks at a power setting up to 5. The patient tolerated procedure well was taken recovery room in good condition Drains No Packing No Pathology None sent Complications No immediate complications Condition Stable
== END 2024-03-12 13:42 | disposition home or self-care (01) ==
PROVIDERS: PCP Family Medicine; Visit Provider Urology
PROC: (CPT 50590; principal; 2024-03-12 11:30)
DX: N20.1 Calculus of ureter (principal); Z79.1 Long term (current) use of non-steroidal anti-inflammatories (NSAID); Z79.891 Long term (current) use of opiate analgesic; Z87.891 Personal history of nicotine dependence; Z86.0100 Personal history of colon polyps, unspecified; Z80.9 Family history of malignant neoplasm, unspecified
CPT/HCPCS: 52005; 50590; 74018; 74176; C1758; C1769; J0690; J1100; J2250; J2405; J2704; J3010; J7030; J7120; Q9966

== ENCOUNTER 2024-03-25 11:51 | Outpatient (CLI) | payer OTHER, SELFPAY ==
--- NOTE | ~2024-03-25 | XR_ITS ---
XR abdomen/kub 1V 03/25/2024 12:09 INDICATION: Kidney stone TECHNIQUE: KUB COMPARISON: 03/12/2024 FINDINGS: Bowel gas pattern is normal. There is no evidence of free air, mass, organomegaly, ascites or obstruction. No abnormal calculi are seen. The bones appear intact. IMPRESSION: 1: No acute abdominal abnormality identified. Reviewed, dictated and finalized at location B. GER INFORMATION
== END 2024-03-25 11:52 | disposition home or self-care (01) ==
PROVIDERS: PCP Family Medicine; Visit Provider Urology
DX: N20.0 Calculus of kidney (principal)
CPT/HCPCS: 74018

== ENCOUNTER 2024-11-12 10:26 | Emergency (ER) | payer OTHER, SELFPAY ==
--- NOTE | ~2024-11-12 | XR_ITS ---
EXAMINATION: XR chest 2V 11/12/2024 10:55 INDICATION: Chest tightness TECHNIQUE:Frontal and lateral images of the chest were obtained. COMPARISON: 10/24/2010 FINDINGS: The lungs are clear. The cardiomediastinal silhouette is within normal limits. There are no pleural effusions. There is no pneumothorax suspected. IMPRESSION: 1: NO ACUTE CARDIOPULMONARY DISEASE. Reviewed, dictated and finalized at location Q.
--- NOTE | 2024-11-12 10:26 | ECG_ITS ---
Test Date: 2024-11-12 10:31:39 Measurements Intervals [facility] Rate: 76 P: 82 TN: 160 QRS: 75 QRSD: 83 T: 69 QT: 352 QTc: 398 Interpretive Statements SINUS RHYTHM CONSIDER RIGHT VENTRICULAR CONDUCTION DELAY BORDERLINE ECG No previous ECG available for comparison Electronically Signed On 11-12-2024 10:35:15 CDT by Aldo Liang D.O.
--- OUTSIDE RECORDS SUMMARY | 2024-11-12 10:31 | XMS_ITS | Clinical Summary ---
Author Organization [address] [facility] [place] Address [address] [place] [id number] Care Team Providers Care Boot And Saddle Repair Person Name Role Phone Roberth Kc MD Primary Care Provider [phone] Allergies No known active allergies Medications No known medications Active Problems No known active problems Encounters Date Type Department Care Team Description 08/13/2024 1:11 PM CDT - 08/13/2024 11:59 PM CDT Hospital Encounter [address] [place] [id number] Right foot pain Discharge Disposition: Discharge to home or self care 08/13/2024 1:00 PM CDT Office Visit [facility] Medicine Orthopaedic Surgery [address] [place] [address] Medical Office Building [address] [place] [address] Eleuterio Rose, JG Right foot pain (Primary Dx) from Last 3 Months Immunizations Immunization Administration Dates Next Due Influenza, Quadrivalent, Spl it, Preservative Free, Intramuscular 02/08/2018 Surgical History Surgery Date Site/Laterality Comments FLUORO GUIDED ASPIRATION OR INJECTION LARGE JOINT BILATERAL 02/13/2022 Bilateral FLUORO GUIDED ASPIRATION OR INJECTION LARGE JOINT BILATERAL 06/16/2023 Bilateral Family History Medical History Relation Name Comments Cancer Father Diabetes Father Relation Name Status Comments Father Social History Tobacco Use Types Packs/Day Years Used Date Smoking Tobacco: Never AUDIT-C Answer Date Recorded Q1: How often do you have a drink containing alc ohol? 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 Gender Identity Not on file Sexual Orientation Not on file Obstetrics History Last Filed Vital Signs Vital Sign Reading Time Taken Comments Blood Pressure 134/101 06/16/2023 10:26 AM CDT Pulse 78 06/16/2023 10:26 AM CDT Temperature - - Respiratory Rate 20 06/16/2023 10:26 AM CDT Oxygen Saturation 97% 02/13/2022 11:18 AM MENS LOCKER ROOM ATTENDANT Inhaled Oxygen Concentration - - Weight 74.8 kg (165 lb) 11/27/2020 11:13 AM CDT Height 180.3 cm (5' 11) 11/27/2020 11:13 AM CDT Body Mass Index 23.01 11/27/2020 11:13 AM CDT Plan of Treatment Health Maintenance Due Date Last Done Comments Colon Cancer Screening-Colonoscopy 1975 Depression Screening 1975 Hepatitis C Screening 1975 DTaP/Tdap/Td Vaccine (1 - Tdap) 11/22/1986 Hepatitis B Screening 11/22/1993 Regular Well Visit/Exam 18-64 11/22/1993 Influenza Vaccine (#1) 2024 02/08/2018 Pneumococcal vaccine <65 Aged Out No longer eligible based on patient's age to complete this topic Procedures Procedure Name Priority Date/Time Associated Diagnosis Comments XR FOOT RIGHT 3 OR MORE VIEWS Schedule Routine, Read Routine (OP Routine) 08/13/2024 1:16 PM CDT Right foot pain from Last 3 Months Results * XR Foot Right 3 or More Views (08/13/2024 1:16 PM CDT) Anatomical Region Laterality Modality Lower Extremities, Foot Right Digital Radiography 08/13/2024 9:03 PM CDT Impressions 08/13/2024 9:03 PM CDT No acute osseous abnormality of the right foot. This report was created using voice recognition software. Occasional wrong-word or sound-alike substitutions may have occurred due to the inherent limitations of voice recognition software. Read the above report carefully and recognize, using context, where substitutions may have occurred. Electronically signed by: Kaylynn Ndiaye M.D. Narrative 08/13/2024 9:03 PM CDT EXAMINATION: XR FOOT RIGHT 3 OR MORE VIEWS DATE: 08/13/2024 1:15 PM HISTORY: right foot pain - WB. COMPARISON: None. FINDINGS: No acute fractures. Bony alignment is normal, and joint spaces are well-maintained. Bipartite medial and lateral 1st metatarsal sesamoids (versus incidental). Bone mineralization is normal. No erosions. No lytic or blastic bone lesion. Procedure Note Kaylynn Ndiaye MD - 08/13/2024 EXAMINATION: XR FOOT RIGHT 3 OR MORE VIEWS DATE: 08/13/2024 1:15 PM HISTORY: right foot pain - WB. COMPARISON: None. FINDINGS: No acute fractures. Bony alignment is normal, and joint spaces are well-maintained. Bipartite medial and lateral 1st metatarsal sesamoids (versus incidental). Bone mineralization is normal. No erosions. No lytic or blastic bone lesion. IMPRESSION: No acute osseous abnormality of the right foot. This report was created using voice recognition software. Occasional wrong-word or sound-alike substitutions may have occurred due to the inherent limitations of voice recognition software. Read the above report carefully and recognize, using context, where substitutions may have occurred. Electronically signed by: Kaylynn Ndiaye M.D. Eleuterio Rose DRYING MACHINE OPERATOR IMG XR PROCEDURES Final Re sult from Last 3 Months Insurance [facility] H[facility]/PPO Address: [address] [address] [place] [address] [id number] [place] [address] CHOICE [facility] HMO/PPO Address: [address] [address] [place] [address] [facility] [facility] H[facility]/PPO Address: [address] [place] [address] Care Teams Boot And Saddle Repair Person Relationship Specialty Start Date End Date Roberth Kc MD PCP - General Family Medicine 09/27/20
[2024-11-12 10:35] VITALS: BP 155/102; PULSE 75; RESP 16; TEMP 36.2; O2SAT 100
[2024-11-12 10:40] VITALS: PULSE 75
[2024-11-12] MEDS: ASPIRIN 81 MG CHEWABLE TABLET 324 MG PO (10:46)
[2024-11-12 10:51] LABS: Hematocrit 44.8 % (42.0-52.0); Hemoglobin 15.1 g/dL (14.0-18.0); Immature Granulocyte Percent A 0.2 % (0-0.5); Lymphocytes Absolute Auto 1.31 K/mm3 (0.9-3.2); Mean Corpuscular HGB Conc 33.7 g/dl (32-36); Mean Corpuscular Hemoglobin 29.6 pg (26-34); Mean Corpuscular Volume 87.8 fl (80-100); Nucleated Red Blood Cells Absolute Auto 0.000 K/mm3 (0.0-0.012); Nucleated Red Blood Cells Perc 0.0 % (0.0-0.2); Platelet Count Result 243 k/mm3 (150-375); Red Blood Count 5.10 M/mm3 (4.6-6.20); White Blood Count 4.6 K/mm3 (4.5-10.0)
--- OUTSIDE RECORDS SUMMARY | 2024-11-12 10:52 | XMS_ITS | Clinical Summary ---
Author Organization [address] [facility] [place] Address [address] [place] [phone] Care Team Providers Care Patient Transport Orderly Name Role Phone Roberth Kc MD Primary Care Provider Allergies No known active allergies Medications No known medications Active Problems No known active problems Encounters Date Type Department Care Team Description 08/13/2024 1:11 PM CDT - 08/13/2024 11:59 PM CDT Hospital Encounter [address] [place] [phone] Right foot pain Discharge Disposition: Discharge to home or self care 08/13/2024 1:00 PM CDT Office Visit [facility] Medicine Orthopaedic Surgery [address] [place] [address] Medical Office Building [address] [place] [address] Eleuterio Rose, JG Right foot pain (Primary [...] on file 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 Eleuterio Rose HEALTH AND WELLNESS MANAGER IMG XR PROCEDURES Final Re sult from Last 3 Months Insurance [facility] CHO[facility] HMO/PPO Address: [address] [address] [place] [address] [id number] [place] [address] CHOICE [facility] HMO/PPO Address: [address] [address] [place] [address] CHO[facility] H[facility]/PPO Address: [address] [place] [address] Care Teams Patient Transport Orderly Relationship Specialty Start Date End Date Roberth Kc MD PCP - General Family Medicine 09/27/20
--- NOTE | 2024-11-12 11:08 | ED_ITS ---
HPI - General Adult General Chief complaint: Chest Pain Stated complaint: chest tightness Time Seen by Provider: 11/12/24 10:36 History of Present Illness HPI narrative: 48-year-old male presenting to the emergency department for evaluation for some left-sided anterior chest pain. Patient reports yesterday he was doing some bench presses the gym and felt some left-sided chest tightness associated with the weightlifting. Patient states that he then had a recurrence of the pain last night and became concerned it was cardiac. Patient has no prior history of coronary artery disease. Patient has never had an ID. Patient never had a stress test. Patient does work out approximately 3 times a week but denies any exertion all chest pain. Patient has no prior history of hypertension, high cholesterol or diabetes. Patient states he is still having some chest tightness that is worsened with movement and palpation. Patient denies any radiation of the chest pain to neck back or arms. Related Data Allergies Allergy/AdvReac Type Severity Reaction Status Date / Time No Known Allergies Allergy Unknown Verified 03/12/24 10:06 Review of Systems 2 Review of Systems: All systems reviewed & are unremarkable except as noted in HPI and below PMFSH Past Medical History Medical History Hemorrhoids, internal Benign neoplasm of sigmoid colon Surgical History Surgical History History of colonoscopy 07/09/23 Social History Social History Years smoked: 10 Smoking status: Former smoker Tobacco type: cigarettes Smoking end date: 03/03/14 Alcohol intake: current Drinks per week: 6 Living arrangements: with family Additional living arrangements comments: Occupation/Education: occupation 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 HEAD: normocephalic, atraumatic. EYES: PERRLA/EOMI, conjunctivae clear. NOSE: Normal no drainage EARS:TMS clear with good light reflex. THROAT: Pharynx clear, no exudate. NECK: Supple. No adenopathy, no masses. RESPIRATORY: Airway patent, respirations nonlabored. Clear to auscultation bilaterally, no rales, rhonchi, wheezing. CARDIOVASCULAR: Regular rate and rhythm without murmurs rubs or gallops. ABDOMINAL: Soft, nontender, nondistended, normal bowel sounds MUSCULOSKELETAL: Reproducible left-sided chest wall tenderness to palpation NEURO: Alert. Cranial nerves II through XII intact. Grossly intact SKIN: Warm, dry. Normal Color Course Vital Signs Vital signs: Vital Signs Temperature 97.2 F L 11/12/24 10:35 Pulse Rate 75 11/12/24 10:35 Respiratory Rate 16 11/12/24 10:35 Blood Pressure 155/102 H 11/12/24 10:35 Pulse Oximetry 100 11/12/24 10:35 Temperature 97.2 F L 11/12/24 10:35 Pulse Rate 75 11/12/24 10:40 Respiratory Rate 16 11/12/24 10:35 Blood Pressure 155/102 H 11/12/24 10:35 Pulse Oximetry 100 11/12/24 10:35 Medical Decision Making [facility] Narrative Medical decision making narrative: 48-year-old male presents to the emergency department for evaluation for left- sided muscular chest pain. Patient is afebrile with no leukocytosis hemoglobin of 15.1. Patient had negative serial troponins. INR is 1.0. Chest x-ray shows no acute cardiopulmonary abnormality an EKG showed no evidence of acute STEMI. Suspect patient's pain as muscular and etiology. Patient was advised to take ibuprofen for pain control pain provided Flexeril for muscle spasm. Differential Diagnosis Differential Diagnosis: Pneumonia, pulmonary embolism, ACS, pneumothorax, muscular strain Vital Signs Vital Signs: Vital Signs Temperature 97.2 F L 11/12/24 10:35 Pulse Rate 75 11/12/24 10:35 Respiratory Rate 16 11/12/24 10:35 Blood Pressure 155/102 H 11/12/24 10:35 Pulse Oximetry 100 11/12/24 10:35 Temperature 97.2 F L 11/12/24 10:35 Pulse Rate 75 11/12/24 10:40 Respiratory Rate 16 11/12/24 10:35 Blood Pressure 155/102 H 11/12/24 10:35 Pulse Oximetry 100 11/12/24 10:35 Lab Data Lab results reviewed: Yes I reviewed the patient's lab results. 11/12/24 10:43 11/12/24 10:43 Labs: Lab Results 11/12/24 11/12/24 Range/Units 10:43 13:02 WBC 4.6 (4.5-10.0) K/mm3 RBC 5.10 (4.6-6.20) M/mm3 Hgb 15.1 (14.0-18.0) g/dL Hct 44.8 (42.0-52.0) % MCV 87.8 (80-100) fl MCH 29.6 (26-34) pg MCHC 33.7 (32-36) g/dl RDW 12.1 (11.5-14.5) % Plt Count 243 (150-375) k/mm3 MPV 9.9 (7.4-10.4) fl Immature Gran % (Auto) 0.2 (0-0.5) % Neut % (Auto) 60.5 (45.5-73.1) % Lymph % (Auto) 28.7 (18.3-44.2) % [place] % (Auto) 8.8 H (2.6-8.5) % Eos % (Auto) 0.9 (0-4.4) % Baso % (Auto) 0.9 (0.2-1.2) % Lymph # (Auto) 1.31 (0.9-3.2) K/mm3 [place] # (Auto) 0.4 (0.1-0.6) K/mm3 Eos # (Auto) 0.0 (0-0.3) K/mm3 Baso # (Auto) 0.0 (0.0-0.1) K/mm3 Abs Immat Gran (auto) 0.01 (0.00-0.031) K/mm3 Absolute Neuts (auto) 2.8 (1.3-6.7) K/mm3 Absolute Nucleated RBC 0.000 (0.0-0.012) K/mm3 Nucleated RBC % 0.0 (0.0-0.2) % PT 13.3 (11.1-14.7) Seconds INR 1.0 APTT 26.2 (22.3-36.8) Seconds Sodium 139 (137-145) mmol/L Potassium 4.0 (3.4-5.0) mmol/L Chloride 102 (98-107) mmol/L Carbon Dioxide 27 (22-30) mmol/L Anion Gap 10 (4-12) mmol/L BUN 18 (9-20) mg/dL Creatinine 1.34 H (0.7-1.3) mg/dL Estim Creat Clear Calc 62 ml/min Estimated GFR 57 L (59 - ) Glucose 119 H (65-110) mg/dL Calcium 9.6 (8.4-10.2) mg/dL Total Bilirubin 0.6 (0.2-1.3) mg/dL AST 35 (17-59) U/L ALT 30 (6-50) U/L Alkaline Phosphatase 56 (38-126) U/L Troponin I < 0.012 < 0.012 (0.000-0.034) ng/mL Total Protein 7.8 (6.3-8.2) g/dL Albumin 5.0 (3.5-5.1) g/dL Lipase 99 (23-300) U/L Imaging Data Radiologist's impression: Impressions Chest X-Ray 11/12/24 11:00 IMPRESSION: 1: NO ACUTE CARDIOPULMONARY DISEASE. ECG Data EKG #1: EKG Interpretation: normal rate, sinus rhythm, no ectopy, non-specific ST changes, normal QRS, normal QT and NL axis Discharge Plan Discharge Clinical Impression: Acute chest wall pain Patient Disposition: Home Condition: Stable Instructions: Antibiotic Form, Chest Wall Pain (ED) Additional Instructions: Tylenol and ibuprofen for pain control. Flexeril for muscle spasm. Have close follow-up with your primary care physician for additional outpatient cardiac testing. If you have any worsening symptoms then please call or return to the emergency department. Patient Language: Pashto Prescriptions: New cyclobenzaprine 10 mg tablet 10 mg PO BID PRN (Reason: muscle spasm) Qty: 14 0RF No Action ibuprofen 600 mg tablet 600 mg PO TID PRN (Reason: pain) Qty: 30 0RF ondansetron 4 mg tablet,disintegrating 4 mg PO Q8H PRN (Reason: nausea and vomiting) Qty: 10 0RF tamsulosin 0.4 mg capsule 0.4 mg PO DAILY Qty: 12 0RF acetaminophen 500 mg capsule 1,000 mg PO Q6H PRN (Reason: pain) Qty: 30 0RF oxycodone 5 mg tablet 5 mg PO Q6H PRN (Reason: pain) Qty: 20 0RF hydrocodone-acetaminophen 5-325 mg tablet 1 - 2 tablet PO Q6H PRN (Reason: pain) Qty: 20 0RF Follow-up/Referrals: Roberth Kc MD [Primary Care Provider, [facility]] Quality HEART score for chest pain patients History: slightly suspicious ECG: normal Age: > 45 and < 65 years Risk factors: 1 or 2 risk factors Troponin: < or = to 1x normal limit Heart score: 2
[2024-11-12 11:14] LABS: Alanine Aminotransferase 30 U/L (6-50); Albumin Level 5.0 g/dL (3.5-5.1); Alkaline Phosphatase 56 U/L (38-126); Anion Gap 10 mmol/L (4-12); Aspartate Amino Transferase 35 U/L (17-59); Bilirubin,Total 0.6 mg/dL (0.2-1.3); Blood Urea Nitrogen 18 mg/dL (9-20); Calcium 9.6 mg/dL (8.4-10.2); Carbon Dioxide 27 mmol/L (22-30); Chloride 102 mmol/L (98-107); Estimated CRCL calculation 62 ml/min; Estimated Glomerular Filt Rate 57; Glucose 119 mg/dL (65-110); Lipase 99 U/L (23-300); Potassium 4.0 mmol/L (3.4-5.0); Sodium 139 mmol/L (137-145); Total Protein 7.8 g/dL (6.3-8.2)
[2024-11-12 11:21] LABS: INR 1.0; Partial Thromboplastin Time 26.2 Seconds (22.3-36.8); Prothrombin Time 13.3 Seconds (11.1-14.7)
[2024-11-12 11:25] LABS: Troponin I < 0.012 ng/mL (0.000-0.034)
[2024-11-12 13:32] LABS: Troponin I < 0.012 ng/mL (0.000-0.034)
== END 2024-11-12 14:14 | disposition home or self-care (01) ==
PROVIDERS: Emergency Provider Emergency Medicine; PCP Family Medicine
DX: R07.89 Other chest pain (principal); Z87.891 Personal history of nicotine dependence; R94.31 Abnormal electrocardiogram [ECG] [EKG]
CPT/HCPCS: 36415; 71046; 80053; 83690; 84484; 85025; 85610; 85730; 93005; 99284; A9270